=== PATIENT | female | born 1950 | race Caucasian/White ===

== ENCOUNTER 2017-11-29 07:01 | Outpatient (CLI) | payer MEDICARE ==
--- NOTE | 2017-11-29 08:27 | ULT ---
SONOGRAM RIGHT UPPER QUADRANT: HISTORY: Right upper quadrant pain. FINDINGS: The gallbladder has a normal appearance. The common duct is 0.5 cm. Liver unremarkable without foca l mass or intrahepatic biliary dilatation. No free fluid. IMPRESSION: No significant abnormalities are demonstrated. POS: [facility]
--- NOTE | 2017-11-29 10:09 | CT ---
ABDOMEN CT WITH CONTRAST PELVIC CT WITH CONTRAST: HISTORY: Upper abdominal pain for years, worsening. History of diverticulitis. COMPARISON: None. FINDINGS: ABDOMEN CT: Lung bases are clear. Heart size normal. No pericardial effusion. Portal vein is patent. Unremark able gallbladder. Subcentimeter hypodensities in the posterior segment of the liver too small to characterize. The spl een, pancreas, and adrenal glands are unremarkable. No gastrohepatic, retrocrural, or periportal lymphadenopathy. No mesenteric mass, lymphadenopathy, free air, or free fluid. Symmetric enhancement of the kidneys. Bilaterally, no obstructive uropathy. Gastric mucosa, duodenum, and multiple normal-caliber small bowel loops are noted. Ileocecal junctio n is normal. Normal-caliber appendix. Contrast and fecal material in the nondistended, nondilated c olon. Diverticulosis, without evidence of diverticulitis. PELVIC CT: Unremarkable urinary bladder. NO pelvic mass, lymphadenopathy, free air, or free fluid. There are s ome asymmetrically increased vessels in the left aspect of the pelvis, compatible with a dilated left ovarian vein. Correlate for left ovarian congestion. Emanating along the superior aspect of the 4t h portion of the duodenum, there is a mixed attenuation focus measuring 1.8 x 1.9 cm. A small puncta te focus of air is present. A diverticulum involving the duodenum is suspected. Vacuum disk phenomenon in the lumbosacral junction. IMPRESSION: 1. No acute abnormality in the abdomen and pelvis. There is evidence of diverticulosis, without lilia dence of diverticulitis. 2. Normal-caliber appendix. 3. Duodenal diverticulum. POS: [facility]
[2017-11-29] MEDS ORDERED: Iopamidol 370 76% 100 ML VIAL ONE (12:27)
== END 2017-11-29 07:02 | disposition home or self-care (01) ==
LOC: ULT 07:01
PROVIDERS: ATTEND Internal Medicine Gastroenterology
DX: R10.13 Epigastric pain (principal); R10.30 Lower abdominal pain, unspecified; K21.9 Gastro-esophageal reflux disease without esophagitis; K59.09 Other constipation; K57.10 Diverticulosis of small intestine without perforation or abscess without bleeding
CPT/HCPCS: 74177; 76705; 82565

== ENCOUNTER 2019-12-09 09:13 | Outpatient (CLI) | payer MEDICARE, OTHER ==
[2019-12-09 19:12] LABS: SARS-CoV-2 MS2 Positive; SARS-CoV-2 N Gene Negative; SARS-CoV-2 S Gene Negative; SARS-CoV-2 by NAA Not Detected (NotDetected); SARS-CoV-2 orf1ab Negative
== END 2019-12-09 09:14 | disposition home or self-care (01) ==
LOC: LABBT 09:13
PROVIDERS: ATTEND Internal Medicine Gastroenterology
DX: K59.09 Other constipation (principal); R10.32 Left lower quadrant pain; K21.9 Gastro-esophageal reflux disease without esophagitis; Z20.828 Contact with and (suspected) exposure to other viral communicable diseases
CPT/HCPCS: 87635; U0003

== ENCOUNTER 2019-12-12 09:53 | Outpatient (CLI) | payer MEDICARE ==
--- NOTE | 2019-12-12 11:03 | RAD ---
XR Barium Swallow Esophagus HISTORY: Chronic constipation, globus, difficulty swallowing COMPARISON: None. FINDINGS: Swallowing was grossly normal. There is unobstructed flow of contrast through the esophagus into the stomach. Tertiary contractions are present. No obstructing mass, stricture or esophageal diverticulum is seen. Incidental note is made of a couple of diverticula in the duodenum. A 12 mm tablet was administered under fluoroscopy in the erect position and passed promptly from the esophagus into the stomach without stasis. IMPRESSION: 1. Presbyesophagus 2. Duodenal diverticula
== END 2019-12-12 09:54 | disposition home or self-care (01) ==
LOC: RAD 09:53
PROVIDERS: ATTEND Internal Medicine Gastroenterology
DX: K59.09 Other constipation (principal); K21.9 Gastro-esophageal reflux disease without esophagitis; R10.32 Left lower quadrant pain; F45.8 Other somatoform disorders; K57.10 Diverticulosis of small intestine without perforation or abscess without bleeding; K22.8 Other specified diseases of esophagus
CPT/HCPCS: 74220

== ENCOUNTER 2020-05-04 09:05 | Outpatient (CLI) | payer MEDICARE ==
[2020-05-04 09:45] LABS: Estimated GFR-MDRD - POC Greater than 90
[2020-05-04] MEDS ORDERED: Iopamidol 370 76% 100 ML VIAL ONE (10:37)
== END 2020-05-04 09:06 | disposition home or self-care (01) ==
LOC: BICCT 09:05
PROVIDERS: ATTEND Physician Assistant Medical
DX: K21.9 Gastro-esophageal reflux disease without esophagitis (principal); K57.92 Diverticulitis of intestine, part unspecified, without perforation or abscess without bleeding; R10.32 Left lower quadrant pain; R10.13 Epigastric pain; F45.8 Other somatoform disorders
CPT/HCPCS: 74177; 82565; Q9967